=== PATIENT | female | born 1980 | race Two or more races ===

== ENCOUNTER → 2020-01-30 | Outpatient (CLI) | payer OTHER ==
[~2020-01-30] MED LIST: ASPIR 8181 MG; FOLIC ACID20 MG; PRENATAL + DHA1 EAC1; PROMETRIUM200 MG PO
== END | disposition home or self-care (01) ==
LOC: PRENATAL 12:43
DX: O26.872 Cervical shortening, second trimester (principal); O09.522 Supervision of elderly multigravida, second trimester; O99.89 Other specified diseases and conditions complicating pregnancy, childbirth and the puerperium; O30.92 Multiple gestation, unspecified, second trimester; O09.91 Supervision of high risk pregnancy, unspecified, first trimester

== ENCOUNTER 2020-01-31 04:41 | Inpatient (IN) | payer OTHER ==
[~2020-01-31] VITALS: Ht 167.6 cm; Wt 541.0 kg
[~2020-01-31 04:41] MED LIST changes: -PROMETRIUM200 MG PO
[2020-02-04] MEDS ORDERED: PROMETRIUM200 MG PO (08:48)
[2020-03-04] MEDS ORDERED: PROMETRIUM200 MG PO (12:43)
== END 2020-03-07 09:41 | disposition home or self-care (01) | DRG 787 ==
LOC: OBS/DEL 04:41 → LDR 08:12 → OB/GYN 08:12 → LDR 10:09 → OB/GYN 02-05 08:52
PROVIDERS: ADMIT Specialist
PROC: BY4DZZZ Ultrasonography of Second Trimester, Multiple Gestation (ICD-10-PCS; 2020-01-31)
PROC: 4A1HXCZ Monitoring of Products of Conception, Cardiac Rate, External Approach (ICD-10-PCS; 2020-01-31)
PROC: 10D00Z1 Extraction of Products of Conception, Low, Open Approach (ICD-10-PCS; principal; 2020-03-04 22:45)
DX: O60.12X2 Preterm labor second trimester with preterm delivery second trimester, fetus 2 (principal); O26.872 Cervical shortening, second trimester; O30.042 Twin pregnancy, dichorionic/diamniotic, second trimester; O26.842 Uterine size-date discrepancy, second trimester; O65.5 Obstructed labor due to abnormality of maternal pelvic organs; O34.12 Maternal care for benign tumor of corpus uteri, second trimester; D25.1 Intramural leiomyoma of uterus; Z37.2 Twins, both liveborn; Z3A.24 24 weeks gestation of pregnancy

== ENCOUNTER → 2020-01-31 | Emergency (ER) | payer OTHER ==
[~2020-01-31] VITALS: Ht 167.6 cm; Wt 83.9 kg
== END | disposition still patient (30) ==
LOC: ER 03:34
DX: O26.892 Other specified pregnancy related conditions, second trimester (principal); R10.2 Pelvic and perineal pain; O26.852 Spotting complicating pregnancy, second trimester